=== PATIENT | female | born 1965 | race Caucasian/White ===

== ENCOUNTER 2018-11-21 17:28 | Emergency (ER) | payer MEDICAID ==
[~2018-11-21] VITALS: Ht 165.1 cm; Wt 47.6 kg
[2018-11-21 17:45] VITALS: Ht 165.1 cm; Wt 47.6 kg
[2018-11-21 19:10] LABS: UA SPECIFIC GRAVITY <=1.005 (1.005-1.035); microscopic required? YES; urine erythrocyte 1+ (NEGATIVE)
[2018-11-21 19:39] LABS: BASOPHIL % 0.4 % (0-2); RED CELL DISTRIBUTION WIDTH 12.3 % (11.5-14.5)
[2018-11-21 19:40] LABS: PLATELET COUNT 114 x10^3mcL (130-400)
[2018-11-21 19:49] LABS: CALCIUM 9.3 mg/dL (8.5-10.1); CARBON DIOXIDE 25.8 mmol/L (21-32); CHLORIDE SERUM 101 mmol/L (98-107); CREATININE SERUM 0.6 mg/dL (0.6-1.0); GFR1 > 60 mL/min; GLUCOSE SERUM 98 mg/dL (74-106); POTASSIUM SERUM 3.2 mmol/L (3.5-5.1); SODIUM SERUM 131 mmol/L (136-145)
[2018-11-21 19:54] LABS: ALKALINE PHOSPHATASE 80 U/L (46-116); ALT/SGPT 26 U/L (14-59); AST/SGOT 25 U/L (15-37); BILIRUBIN TOTAL 1.13 mg/dL (0.20-1.00); TOTAL PROTEIN, SERUM 7.2 g/dL (6.4-8.2)
[2018-11-21 19:56] LABS: ALBUMIN 3.3 g/dL (3.4-5.0)
[2018-11-21 21:22] LABS: APPEARANCE CSF CLEAR; COLOR CSF COLORLESS
[2018-11-21 21:23] LABS: RBC CSF 2 /cumm (0); WBC CSF 3 /cumm (0-5)
[2018-11-21 21:46] LABS: TOTAL PROTEIN CSF 34.5 mg/dL (15-45)
[2018-11-21 23:31] VITALS: BP 158/91
== END 2018-11-21 23:31 | disposition home or self-care (01) ==
LOC: ED 17:28
PROVIDERS: Emergency Medicine
DX: B34.9 Viral infection, unspecified (principal); F17.210 Nicotine dependence, cigarettes, uncomplicated; R91.8 Other nonspecific abnormal finding of lung field; Z88.2 Allergy status to sulfonamides; Z88.8 Allergy status to other drugs, medicaments and biological substances; Z90.89 Acquired absence of other organs
CPT/HCPCS: 99406; J1885; J2001; J2405; J7030; Q0092

== ENCOUNTER 2019-05-03 22:26 | Emergency (ER) | payer MEDICAID ==
[~2019-05-03] VITALS: Ht 165.1 cm; Wt 50.8 kg
[2019-05-03 22:30] VITALS: Ht 165.1 cm; Wt 50.8 kg
[2019-05-03 23:09] LABS: BASOPHIL % 0.5 % (0-2); PLATELET COUNT 203 x10^3mcL (130-400); RED CELL DISTRIBUTION WIDTH 13.2 % (11.5-14.5)
[2019-05-03 23:26] LABS: CALCIUM 8.1 mg/dL (8.5-10.1); CARBON DIOXIDE 28.4 mmol/L (21-32); CHLORIDE SERUM 100 mmol/L (98-107); CREATININE SERUM 0.7 mg/dL (0.6-1.0); GFR1 > 60 mL/min; GLUCOSE SERUM 102 mg/dL (74-106); POTASSIUM SERUM 3.4 mmol/L (3.5-5.1); SODIUM SERUM 137 mmol/L (136-145)
[2019-05-03 23:31] LABS: ALKALINE PHOSPHATASE 97 U/L (46-116); ALT/SGPT 18 U/L (14-59); AST/SGOT 13 U/L (15-37); BILIRUBIN TOTAL 0.43 mg/dL (0.20-1.00); TOTAL PROTEIN, SERUM 6.7 g/dL (6.4-8.2)
[2019-05-03 23:33] LABS: ALBUMIN 2.8 g/dL (3.4-5.0)
[2019-05-04 01:35] VITALS: BP 104/70
== END 2019-05-04 01:35 | disposition home or self-care (01) ==
LOC: ED 22:26
PROVIDERS: Emergency Medicine
DX: S29.012A Strain of muscle and tendon of back wall of thorax, initial encounter (principal); F17.200 Nicotine dependence, unspecified, uncomplicated; Z71.6 Tobacco abuse counseling; Z88.2 Allergy status to sulfonamides; Z88.8 Allergy status to other drugs, medicaments and biological substances; Z90.89 Acquired absence of other organs; Z98.82 Breast implant status; X58.XXXA Exposure to other specified factors, initial encounter; Y93.89 Activity, other specified; Y92.89 Other specified places as the place of occurrence of the external cause; Y99.8 Other external cause status
CPT/HCPCS: 36415; 99406; J1885; Q0092

== ENCOUNTER 2019-06-27 01:04 | Emergency (ER) | payer MEDICAID ==
[~2019-06-27] VITALS: Ht 165.1 cm; Wt 45.4 kg
[2019-06-27 01:20] VITALS: Ht 165.1 cm; Wt 45.4 kg
[2019-06-27 02:40] LABS: BASOPHIL % 0.6 % (0-2); PLATELET COUNT 200 x10^3mcL (130-400)
[2019-06-27 02:47] LABS: RED CELL DISTRIBUTION WIDTH 15.2 % (11.5-14.5)
[2019-06-27 02:52] LABS: CALCIUM 8.7 mg/dL (8.5-10.1); CHLORIDE SERUM 99 mmol/L (98-107); CREATININE SERUM 0.8 mg/dL (0.6-1.0); GFR1 > 60 mL/min; GLUCOSE SERUM 120 mg/dL (74-106); SODIUM SERUM 133 mmol/L (136-145)
[2019-06-27 02:56] LABS: ALKALINE PHOSPHATASE 97 U/L (46-116); ALT/SGPT 15 U/L (14-59); AST/SGOT 24 U/L (15-37); BILIRUBIN TOTAL 0.42 mg/dL (0.20-1.00); LIPASE 235 IU/L (73-393); TOTAL PROTEIN, SERUM 7.7 g/dL (6.4-8.2)
[2019-06-27 02:57] LABS: ALBUMIN 2.7 g/dL (3.4-5.0)
[2019-06-27 05:34] VITALS: BP 118/53
== END 2019-06-27 06:35 | disposition home or self-care (01) ==
LOC: ED 01:04
DX: R16.1 Splenomegaly, not elsewhere classified (principal); N39.0 Urinary tract infection, site not specified; Z88.2 Allergy status to sulfonamides; Z88.8 Allergy status to other drugs, medicaments and biological substances; Z98.82 Breast implant status; Z90.89 Acquired absence of other organs; Z98.890 Other specified postprocedural states
CPT/HCPCS: J1885; J2405

== ENCOUNTER 2019-07-21 17:32 | Inpatient (IN) | payer MEDICAID ==
[~2019-07-21] VITALS: Ht 165.1 cm; Wt 45.8 kg
[2019-07-21 18:33] LABS: BASOPHIL % 0.1 % (0-2); PLATELET COUNT 158 x10^3mcL (130-400)
[2019-07-21 18:35] LABS: RED CELL DISTRIBUTION WIDTH 15.5 % (11.5-14.5)
[2019-07-21 18:54] LABS: CALCIUM 8.6 mg/dL (8.5-10.1); CARBON DIOXIDE 25.8 mmol/L (21-32); CHLORIDE SERUM 94 mmol/L (98-107); CREATININE SERUM 0.9 mg/dL (0.6-1.0); GFR1 > 60 mL/min; GLUCOSE SERUM 117 mg/dL (74-106); POTASSIUM SERUM 4.1 mmol/L (3.5-5.1); SODIUM SERUM 130 mmol/L (136-145)
[2019-07-21 18:59] LABS: ALKALINE PHOSPHATASE 116 U/L (46-116); ALT/SGPT 28 U/L (14-59); AST/SGOT 47 U/L (15-37); BILIRUBIN TOTAL 0.5 mg/dL (0.20-1.00)
[2019-07-21 19:00] LABS: ALBUMIN 2.6 g/dL (3.4-5.0)
[2019-07-21 19:09] LABS: CALCIUM 8.8 mg/dL (8.5-10.1); LIPASE 106 IU/L (73-393)
[2019-07-21] MEDS ORDERED: PROAIR HFA8.5 GM (19:17)
[2019-07-21 19:21] LABS: CHOLESTEROL 92 mg/dL (<200); HDL CHOLESTEROL 9 mg/dL (40-60)
[2019-07-21 19:26] LABS: UA SPECIFIC GRAVITY >=1.030 (1.005-1.035); microscopic required? YES; urine erythrocyte 1+ (NEGATIVE)
[2019-07-21 19:43] LABS: AMPHETAMINE QUAL UR POSITIVE (See below)
[2019-07-21 21:28] LABS: FREE T4 2.02 ng/dL (0.76-1.46); FREE THYROXINE INDEX 3.2 ug/dL (1.4-4.5); T4(THYROXINE) 10.1 ug/dL (4.7-13.3)
[2019-07-21 22:04] LABS: T3 TOTAL 0.93 ng/mL
[2019-07-21 23:33] VITALS: BP 141/63
[2019-07-22 00:37] VITALS: BP 141/63
[2019-07-22 04:49] VITALS: BP 100/50
[2019-07-22 07:05] LABS: BASOPHIL % 0 % (0-2); PLATELET COUNT 123 x10^3mcL (130-400); RED CELL DISTRIBUTION WIDTH 15.3 % (11.5-14.5)
[2019-07-22 07:06] LABS: CALCIUM 8.3 mg/dL (8.5-10.1); CARBON DIOXIDE 24.9 mmol/L (21-32); CHLORIDE SERUM 100 mmol/L (98-107); CREATININE SERUM 0.8 mg/dL (0.6-1.0); GFR1 > 60 mL/min; GLUCOSE SERUM 205 mg/dL (74-106); POTASSIUM SERUM 3.9 mmol/L (3.5-5.1); SODIUM SERUM 135 mmol/L (136-145)
[2019-07-22 09:02] VITALS: BP 96/46
[2019-07-22 13:02] VITALS: BP 101/45
[2019-07-22 17:41] VITALS: BP 107/74
[2019-07-22 22:45] VITALS: BP 100/56
[2019-07-23 06:03] VITALS: BP 145/59
[2019-07-23 07:34] LABS: CALCIUM 8.5 mg/dL (8.5-10.1); CARBON DIOXIDE 22.4 mmol/L (21-32); CHLORIDE SERUM 103 mmol/L (98-107); CREATININE SERUM 0.7 mg/dL (0.6-1.0); GFR1 > 60 mL/min; GLUCOSE SERUM 128 mg/dL (74-106); POTASSIUM SERUM 3.5 mmol/L (3.5-5.1); SODIUM SERUM 136 mmol/L (136-145)
[2019-07-23 08:37] LABS: BASOPHIL % 0 % (0-2); PLATELET COUNT 99 x10^3mcL (130-400)
[2019-07-23 08:57] VITALS: BP 94/45
[2019-07-23 11:34] VITALS: Ht 165.1 cm; Wt 45.8 kg
[2019-07-23 12:33] VITALS: BP 135/45
[2019-07-23 16:11] VITALS: BP 131/65
[2019-07-23 21:20] VITALS: BP 104/45
[2019-07-24 05:56] VITALS: BP 120/49
[2019-07-24 07:04] LABS: PLATELET COUNT 139 x10^3mcL (130-400)
[2019-07-24 07:08] LABS: BASOPHIL % 0 % (0-2); RED CELL DISTRIBUTION WIDTH 15.2 % (11.5-14.5)
[2019-07-24 07:09] LABS: CALCIUM 8.3 mg/dL (8.5-10.1); CARBON DIOXIDE 26.2 mmol/L (21-32); CHLORIDE SERUM 103 mmol/L (98-107); CREATININE SERUM 0.8 mg/dL (0.6-1.0); GFR1 > 60 mL/min; GLUCOSE SERUM 112 mg/dL (74-106); POTASSIUM SERUM 3.5 mmol/L (3.5-5.1); SODIUM SERUM 139 mmol/L (136-145)
== END 2019-07-24 09:25 | disposition left against medical advice (07) | DRG 720 ==
LOC: ED 17:32 → DU 20:52
PROVIDERS: Emergency Medicine; ADMIT Internal Medicine
DX: A41.81 Sepsis due to Enterococcus (principal); I21.A1 Myocardial infarction type 2; E43 Unspecified severe protein-calorie malnutrition; J96.01 Acute respiratory failure with hypoxia; N17.0 Acute kidney failure with tubular necrosis; I33.9 Acute and subacute endocarditis, unspecified; I50.33 Acute on chronic diastolic (congestive) heart failure; J09.X1 Influenza due to identified novel influenza A virus with pneumonia; E87.1 Hypo-osmolality and hyponatremia; E86.0 Dehydration; F15.23 Other stimulant dependence with withdrawal; F33.2 Major depressive disorder, recurrent severe without psychotic features; F11.23 Opioid dependence with withdrawal; J45.909 Unspecified asthma, uncomplicated; B18.2 Chronic viral hepatitis C; F43.10 Post-traumatic stress disorder, unspecified; D64.9 Anemia, unspecified; J44.1 Chronic obstructive pulmonary disease with (acute) exacerbation; Z87.891 Personal history of nicotine dependence; Z68.1 Body mass index [BMI] 19.9 or less, adult; Z22.322 Carrier or suspected carrier of Methicillin resistant Staphylococcus aureus
CPT/HCPCS: 36600; 82962; 83880; 84439; 85378; 87804; 94150; 97110-GP; 97116-GP; 97530-GP; G0378; G0480; J1650; J1940; J1956; J2060; J2405; J2920; J2930; J3490; J7040; J7613; J7620; J7644; Q9967